=== PATIENT | male | born 1985 | race Caucasian/White ===

== ENCOUNTER 2018-11-13 06:18 | Emergency (ER) | payer OTHER ==
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
[2018-11-13] MEDS ORDERED: ACETAMINOPHEN TAB 500 MG TAB PO STA (07:10)
[2018-11-13 07:16] VITALS: TEMP 98.2
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
[2018-11-13 08:03] VITALS: BP 135/92; PULSE 100; RESP 17
== END 2018-11-13 08:03 | disposition home or self-care (01) ==
LOC: EC 06:18
DX: S16.1XXA Strain of muscle, fascia and tendon at neck level, initial encounter (principal); F17.200 Nicotine dependence, unspecified, uncomplicated; V43.52XA Car driver injured in collision with other type car in traffic accident, initial encounter; Y92.410 Unspecified street and highway as the place of occurrence of the external cause
CPT/HCPCS: 70450; 72125; 99284

== ENCOUNTER → 2020-08-04 | Outpatient (CLI) | payer BC ==
--- NOTE | 2020-08-04 15:03 | CT ---
EXAMINATION TYPE: CT abdomen pelvis wo con DATE OF EXAM: 08/04/2020 COMPARISON: HISTORY: right sided abdominal pain CT DLP: 1005 mGycm Automated exposure control for dose reduction was used. TECHNIQUE: Helical acquisition of images was performed from the lung bases through the pelvis. FINDINGS: LUNG BASES: No significant abnormality is appreciated. LIVER/GB: No significant abnormality is appreciated. PANCREAS: No significant abnormality is seen. SPLEEN: No significant abnormality is seen. ADRENALS: No significant abnormality is seen. KIDNEYS: No significant abnormality is seen. ADENOPATHY: None visualized. OSSEOUS STRUCTURES: No significant abnormality is seen. BOWEL: Diverticulosis of the colon. Area of narrowing of the sigmoid colon may be related to perista lsis rather than a true narrowing correlate clinically and if necessary with direct visualization. Ap pendix normal. No free fluid or free air. OTHER: Small fat-containing periumbilical hernia. Aorta of normal caliber. IMPRESSION: 1. No hydronephrosis or nephrolithiasis. 2. Appendix normal. 3. Small fat-containing periumbilical hernia. Area of localized narrowing involving the sigmoid colon may be related to transient peristalsis. Correlate clinically and if necessary with direct visualiza tion as clinically warranted.
== END | disposition home or self-care (01) ==
LOC: RADCTMAIN 14:12
PROVIDERS: ATTEND Family Medicine
DX: K42.9 Umbilical hernia without obstruction or gangrene (principal)
CPT/HCPCS: 74176

== ENCOUNTER 2022-03-30 14:25 | Emergency (ER) | payer BC ==
--- NOTE | 2022-03-30 14:29 | ED ---
General Adult HPI <Vargas Wiggins - Last Filed: 03/30/22 14:28> - General Source: patient, RN notes reviewed Limitations: no limitations <Luis Alberto Archer - Last Filed: 03/30/22 17:26> - General Stated complaint: abd pain Time Seen by Provider: 03/30/22 14:28 - History of Present Illness Initial comments: Dictation was produced using [employer] dictation software. please excuse any grammatical, word or spelling errors. Medical screening exam: 36-year-old male presents emergency department for right upper quadrant pain. He's been having intermittent episodes. Patient's history of right upper quadrant abdominal pain evaluation in the past. Denies any history of cholecystectomy. No fevers. No nausea vomiting. At the bedside patient's well-appearing acute distress. Palpation to the right upper quadrant is unremarkable. (Vargas Wiggins) Patient is a pleasant 36-year-old male presenting to the emergency department with concerns for abdominal discomfort. Symptoms have been present for the past year and a half. Symptoms are somewhat worse the past couple of days. Symptoms do wax and wane. Symptoms are not dietary. Discomfort is somewhat worse on the right upper than left upper. Patient has had previous workup including ultrasound, HIDA scan, and computed tomography scan however that has been 10 or 11 months ago. No nausea or vomiting. No constipation or diarrhea. (Luis Alberto Archer) - Related Data Previous Rx's Medication Instructions Recorded Dicyclomine [Bentyl] 20 mg PO QID PRN #15 tablet 03/30/22 Pantoprazole [Protonix] 40 mg PO DAILY #30 tab 03/30/22 Allergies Allergy/AdvReac Type Severity Reaction Status Date / Time No Known Allergies Allergy Verified 03/30/22 14:34 Review of Systems ROS Other: All systems not noted in ROS Statement are negative. <Vargas Wiggins - Last Filed: 03/30/22 14:28> ROS Other: All systems not noted in ROS Statement are negative. Constitutional: Denies: fever Respiratory: Denies: dyspnea Cardiovascular: Denies: chest pain Gastrointestinal: Reports: as per HPI, abdominal pain Musculoskeletal: Denies: back pain <Luis Alberto Archer - Last Filed: 03/30/22 17:26> ROS Statement: Those systems with pertinent positive or pertinent negative responses have been documented in the HPI. Past Medical History Past Medical History: No Reported History History of Any Multi-Drug Resistant Organisms: None Reported Past Surgical History: No Surgical Hx Reported Past Psychological History: No Psychological Hx Reported Past Alcohol Use History: None Reported Past Drug Use History: None Reported <RosalieVargas D - Last Filed: 03/30/22 14:28> General Exam Limitations: no limitations General appearance: alert, in no apparent distress Head exam: Present: normocephalic Eye exam: Present: normal appearance Neck exam: Present: normal inspection Respiratory exam: Present: normal lung sounds bilaterally Cardiovascular Exam: Present: regular rate, normal rhythm Expanded Peripheral pulses: 2+: Posterior Tibialis (R), Posterior Tibialis (L) GI/Abdominal exam: Present: soft, tenderness (Mild tenderness right upper). Absent: distended Extremities exam: Present: normal inspection. Absent: pedal edema, calf tenderness Neurological exam: Present: alert Psychiatric exam: Present: normal affect, normal mood Skin exam: Present: normal color <Luis Alberto Archer - Last Filed: 03/30/22 17:26> Course Vital Signs 03/30/22 14:30 Temperature 97.7 F Pulse Rate 93 Respiratory 18 Rate Blood Pressure 126/85 O2 Sat by Pulse 97 Oximetry EKG Findings - EKG Results: EKG: interpreted by ERMNuzhat, sinus rhythm, normal axis, normal QRS, normal ST/T <Luis Alberto Archer - Last Filed: 03/30/22 17:26> Medical Decision Making - Lab Data Result diagrams: 03/30/22 14:29 03/30/22 14:29 - Radiology Data Radiology results: report reviewed (Computed tomography scan of the abdomen pelvis reveals no acute process.) <Luis Alberto Archer - Last Filed: 03/30/22 17:26> - Medical Decision Making Patient reevaluated and updated. Was pt. sent in by a medical professional or institution? @ -n Did you speak to anyone other than the patient for history? @ -n Did you review nursing and triage notes? @ -y and I agree Were old charts reviewed? @ -n Differential Diagnosis? @ -Differential Abdominal Pain Women: Appendicitis, Cholecystitis, diverticulosis, ischemic bowel, pancreatitis, hepatitis, UTI, gastroenteritis, AAA, incarcerated hernia, bowel obstruction, constipation, inflammatory bowel, hepatitis, peptic ulcer disease, splenic infarction, perforated viscus, vulvitis, ovarian torsion, PID, kidney stone, placenta abruption, this is not meant to be an all-inclusive list EKG interpreted by me (3pts min.)? @ -y X-rays interpreted by me (1pt min.)? @ -n CT interpreted by me (1pt min.)? @ -n U/S interpreted by me (1pt. min.)? @ -n What testing was considered but not performed? (CT, X-rays, U/S, labs)? Why? @ Ultrasound considered however computed tomography scan was ordered What meds were considered but not given? Why? @ -Additional Abdominal medications were considered however not given secondary to patient appearing well at this time. Did you discuss the management of the patient with other professionals? @ -n Did you reconcile home meds? @ -n Was smoking cessation discussed for >3mins.? @ -n Was critical care preformed (if so, how long)? @ -n Were there social determinants of health that impacted care today? How? (Homelessness, low income, unemployed, alcoholism, drug addiction, transportation, low edu. Level, literacy, decrease access to med. care, nursing home, rehab)? @ -n Was there de-escalation of care discussed even if they declined? (Discuss DNR or withdrawal of care, Hospice)? @ -n What co-morbidities impacted this encounter? (DM, HTN, Smoking, COPD, CAD, Cancer, CVA, Hep., AIDS, mental health diagnosis, sleep apnea, morbid obesity)? @ - Was patient admitted / discharged? @ -Discharged Undiagnosed new problem with uncertain prognosis? @ -Undiagnosed new problem, nonspecific abdominal pain with uncertain prognosis Drug Therapy requiring intensive monitoring for toxicity (Heparin, Nitro, Insulin, Cardizem)? @ -n Were any procedures done? @ -n Diagnosis/symptom? @ -Abdominal pain, acute Acute, or Chronic, or Acute on Chronic? @ -Acute on chronic Uncomplicated (without systemic symptoms) or Complicated (systemic symptoms)? @ -Uncomplicated Side effects of treatment? @ -n Exacerbation, Progression, or Severe Exacerbation] @ -n Poses a threat to life or bodily function? @ -n (Luis Alberto Archer) - Lab Data Lab Results 03/30/22 03/30/22 03/30/22 Range/Units 14:29 14:29 14:29 WBC 10.1 (3.8-10.6) k/uL RBC 5.24 (4.30-5.90) m/uL Hgb 15.9 (13.0-17.5) gm/dL Hct 43.8 (39.0-53.0) % MCV 83.6 (80.0-100.0) fL MCH 30.3 (25.0-35.0) pg MCHC 36.3 (31.0-37.0) g/dL RDW 12.5 (11.5-15.5) % Plt Count 293 (150-450) k/uL MPV 6.9 Neutrophils % 62 % Lymphocytes % 29 % Monocytes % 5 % Eosinophils % 2 % Basophils % 1 % Neutrophils # 6.3 (1.3-7.7) k/uL Lymphocytes # 3.0 (1.0-4.8) k/uL Monocytes # 0.5 (0-1.0) k/uL Eosinophils # 0.2 (0-0.7) k/uL Basophils # 0.1 (0-0.2) k/uL Sodium 140 (137-145) mmol/L Potassium 4.0 (3.5-5.1) mmol/L Chloride 103 (98-107) mmol/L Carbon Dioxide 27 (22-30) mmol/L Anion Gap 10 mmol/L BUN 10 (9-20) mg/dL Creatinine 0.90 (0.66-1.25) mg/dL Est GFR (CKD-EPI)AfAm >90 (>60 ml/min/1.73 sqM) Est GFR (CKD-EPI)NonAf >90 (>60 ml/min/1.73 sqM) Glucose 87 (74-99) mg/dL Calcium 9.8 (8.4-10.2) mg/dL Total Bilirubin 0.9 (0.2-1.3) mg/dL AST 28 (17-59) U/L ALT 47 (4-49) U/L Alkaline Phosphatase 78 (38-126) U/L Total Protein 8.0 (6.3-8.2) g/dL Albumin 5.0 (3.5-5.0) g/dL Lipase 74 (23-300) U/L Urine Color Colorless Urine Appearance Clear (Clear) Urine pH 6.5 (5.0-8.0) Ur Specific S[place]heimer 1.006 (1.001-1.035) Urine Protein Negative (Negative) Urine Glucose (UA) Negative (Negative) Urine Ketones Negative (Negative) Urine Blood Negative (Negative) Urine Nitrite Negative (Negative) Urine Bilirubin Negative (Negative) Urine Urobilinogen <2.0 (<2.0) mg/dL Ur Leukocyte Esterase Negative (Negative) Disposition <Vargas Wiggins - Last Filed: 03/30/22 14:28> Is patient prescribed a controlled substance at d/c from ED?: No Time of Disposition: 17:25 <Luis Alberto Archer - Last Filed: 03/30/22 17:26> Clinical Impression: Abdominal pain Disposition: HOME SELF-CARE Condition: Stable Instructions (If sedation given, give patient instructions): Abdominal Pain (ED) Additional Instructions: Please do follow-up with primary care physician in the next couple days for recheck. Please consider evaluation with gastroenterology or surgery. Return for increased pain, fever, vomiting, worsening or change in symptoms or other concerns. Prescriptions have been sent to pharmacy. Prescriptions: Dicyclomine [Bentyl] 20 mg PO QID PRN #15 tablet PRN Reason: Pain Pantoprazole [Protonix] 40 mg PO DAILY #30 tab Referrals: Pearl Kohler MD [STAFF PHYSICIAN] - 1-2 days Harry Aleman MD [Medical Doctor] - 1-2 days Yousif Banks MD [STAFF PHYSICIAN] - 1-2 days
[2022-03-30 14:34] VITALS: BP 126/85; PULSE 93; RESP 18; TEMP 97.7
[2022-03-30 14:58] LABS: Appearance,Urine Clear (Clear); Basophils # (A) 0.1 k/uL (0-0.2); Basophils % (A) 1 %; Bilirubin,Urine Negative (Negative); Blood,Urine Negative (Negative); Color,Urine Colorless; Eosinophils # (A) 0.2 k/uL (0-0.7); Eosinophils % (A) 2 %; Glucose,Urine (UA) Negative (Negative); HCT 43.8 % (39.0-53.0); HGB 15.9 gm/dL (13.0-17.5); Ketones,Urine Negative (Negative); Leukocyte Esterase,Urine Negative (Negative); Lymphocytes % (A) 29 %; MCH 30.3 pg (25.0-35.0); MCHC 36.3 g/dL (31.0-37.0); MCV 83.6 fL (80.0-100.0); Mean Platelet Volume 6.9; Monocytes # (A) 0.5 k/uL (0-1.0); Monocytes % (A) 5 %; Neutrophils # (A) 6.3 k/uL (1.3-7.7); Neutrophils % (A) 62 %; Nitrite,Urine Negative (Negative); PH, Urine 6.5 (5.0-8.0); Platelet Count 293 k/uL (150-450); Protein,Urine Negative (Negative); RBC 5.24 m/uL (4.30-5.90); RDW 12.5 % (11.5-15.5); Specific Gravity,Urine 1.006 (1.001-1.035); Urobilinogen,Urine <2.0 mg/dL (<2.0); WBC 10.1 k/uL (3.8-10.6)
[2022-03-30 15:07] LABS: ALT 47 U/L (4-49); AST 28 U/L (17-59); African American GFR (CKD) >90 (>60 ml/min/1.73 sqM); Alkaline Phosphatase 78 U/L (38-126); Anion Gap 10 mmol/L; Blood Urea Nitrogen 10 mg/dL (9-20); Calcium 9.8 mg/dL (8.4-10.2); Carbon Dioxide 27 mmol/L (22-30); Chloride 103 mmol/L (98-107); Glucose 87 mg/dL (74-99); Lipase 74 U/L (23-300); Non-African American GFR(CKD) >90 (>60 ml/min/1.73 sqM); Sodium 140 mmol/L (137-145); Total Bilirubin 0.9 mg/dL (0.2-1.3)
[2022-03-30] MEDS ORDERED: DICYCLOMINE 10 MG/ML 2 ML AMP IM STA (15:45)
--- NOTE | 2022-03-30 16:56 | CT ---
EXAMINATION TYPE: CT abdomen pelvis wo con DATE OF EXAM: 03/30/2022 COMPARISON: 08/04/2020 HISTORY: right flank pain CT DLP: 991.9 mGycm Automated exposure control for dose reduction was used. Images obtained from the diaphragm to the floor the pelvis with no contrast. Lung bases are clear. No pleural effusion. Heart size is normal. No pericardial effusion. Liver spleen and stomach pancreas gallbladder appear intact. The bile ducts are not dilated. There is no adrenal mass. Kidneys show normal size and contour. No hydronephrosis. Ureters are not di lated. Bladder distends smoothly. No inguinal hernia. No free fluid in the pelvis. Appendix is domestic cleaner ior and appears normal. There is no inguinal hernia. No evidence of pelvic mass. There is no mesenter ic edema. No ascites or free air. No sign of a bowel obstruction. The lumbar vertebra appear intact. No compression fracture. Posterior elements are intact. No signifi cant disc space narrowing. Bony pelvis is intact. The hip joints are intact. IMPRESSION: Negative CT scan abdomen and pelvis. Normal appendix. No adverse change compared to old exam.
== END 2022-03-30 17:45 | disposition home or self-care (01) ==
LOC: EC 14:25
DX: R10.11 Right upper quadrant pain (principal)
CPT/HCPCS: 36415; 93005; 80053; 83690; 85025; 81003; 74176; 99284; 96372; J0500

== ENCOUNTER 2022-08-13 11:08 | Day surgery (SDC) | payer BC ==
[2022-08-13 13:59] VITALS: TEMP 97
[2022-08-13] MEDS ORDERED: LACTATED RINGERS 1,000 ML IV ONE (14:07)
[2022-08-13] MEDS ORDERED: PROPOFOL 10 MG/ML 20 ML VIAL IV ONE (16:00)
[2022-08-13] MEDS ORDERED: LIDOCAINE 2% INJ 20 MG/ML (2 ML VIAL) ONE (16:00)
--- NOTE | 2022-08-13 16:11 | P.PCN ---
Date of Procedure: 08/13/22 Procedure(s) Performed: BRIEF HISTORY: Patient is a 37-year-old, pleasant, white male male scheduled for an upper endoscopy as a part of evaluation of epigastric and right upper quadrant abdominal pain for the last 2 years duration.. He does complain of occasional heartburn. He denies any nausea vomiting. PROCEDURE PERFORMED: Esophagogastroduodenoscopy with biopsy. PREOPERATIVE DIAGNOSIS: Chronic right upper quadrant abdominal pain and occasional heartburn. IV sedation per anesthesia. PROCEDURE: After informed consent was obtained, the patient was brought into the endoscopy unit. IV sedation was administered by Anesthesia under continuous monitoring. Initially the Olympus GIF-140 video endoscope was inserted into the mouth. Esophagus intubated without any difficulty. It was gradually advanced into the stomach and duodenum and carefully examined. The bulb and the second part of the duodenum appeared normal. The scope at this time was withdrawn to the stomach, adequately insufflated with air, and upon careful examination, mucosa of the antrum, and mild gastritis and biopsies were done from this area. Mucosa of the body, cardia and the fundus appeared normal. The scope was then withdrawn into the esophagus. small hiatal hernia noted. The GE junction was located at 41 cm from the incisors. linear erosions in the distal esophagus consistent with LA grade B reflux esophagitis. Rest of esophagus appeared normal and the patient tolerated the procedure well. IMPRESSION: 1. Linear erosions in the distal esophagus consistent with LA grade B reflux esophagitis. 2. Small hiatal hernia 3. Mild antral gastritis. RECOMMENDATIONS: The findings of this examination were discussed with the patient as well as a family. He was advised to follow with the biopsy results. In the meantime I suggested that he try Prilosec 20 mg daily half hour before breakfast and follow antireflux measures for 6 weeks. Follow up in office in 6 weeks
[2022-08-13] MEDS ORDERED: LACTATED RINGERS 1,000 ML IV SCH (16:16)
[2022-08-13 16:33] VITALS: BP 136/76; PULSE 90; RESP 16
== END 2022-08-13 16:50 | disposition home or self-care (01) ==
LOC: ORWHC2ENDO 11:08
PROVIDERS: ATTEND Internal Medicine Gastroenterology
DX: K29.50 Unspecified chronic gastritis without bleeding (principal); K44.9 Diaphragmatic hernia without obstruction or gangrene; G89.29 Other chronic pain; K21.9 Gastro-esophageal reflux disease without esophagitis; F17.290 Nicotine dependence, other tobacco product, uncomplicated; Z79.899 Other long term (current) drug therapy
CPT/HCPCS: 43239; J2704; J2001; 88305

== ENCOUNTER → 2024-07-11 | Outpatient (CLI) | payer BC ==
[2024-07-11 15:26] VITALS: BP 127/75; PULSE 97; RESP 16; TEMP 98.1
--- NOTE | 2024-07-11 15:56 | P.SLEEP ---
History of Present Illness DATE: 07/11/2024 CONSULTATION/NEW PATIENT EVALUATION HISTORY OF PRESENT ILLNESS/SLEEP-WAKE EVALUATION: 39-year-old gentleman had b een evaluated in the sleep center for possible obstructive sleep apnea hypopnea syndrome. SLEEP SCHEDULE: Usually sleep schedule from 9 PM to 4 AM on weekdays and from 10 PM to 7 AM on weekend. FALLING ASLEEP: Noticed with falling asleep, has TV set in bedroom. DURING SLEEP: Patient usually sleeps on the side position with loud snoring and witnessed episodes of stop breathing during sleep by his . If history of possible night terrors. Positive history of sleep talking, sweating, restless leg symptoms, heartburn, dry mouth. Patient wakes up from sleep 3 times with nocturia no history of hypnogogical hallucinations, sleep paralysis, or cataplexy. DURING THE DAY/WAKE STATE: In the morning patient wake up tired, has difficulties to pay attention, has problems with memory, concentration, irritability, anxiety.. Taylor sleepiness scale is significantly increased to 13. Patient may take nap on weekends around noon time. PAST MEDICAL HISTORY: Sinus problems, allergy to dust. PAST SURGICAL HISTORY: None. MEDICATIONS: None. SOCIAL HISTORY: Please see below. FAMILY HISTORY: See below. REVIEW OF SYSTEMS: Loud snoring, multiple awakenings from sleep, sleepiness during the day. No fevers. No double vision. No recent chest pain. No shortness of breath. No abdominal pain. No bleeding episodes. No blood in urine. No seizure episodes. PHYSICAL EXAMINATION: GENERAL: A pleasant patient without any distress. VITAL SIGNS: Please see below, weight 251.4 pounds, BMI 35.0. HEENT: PERRLA, EOMI. Evaluation of oropharynx showed tongue protrudes midline, low position of soft palate Mallampati 34. NECK: Supple. No JVD. Thyroid is not palpable. 18-1/4 inches in circumference. LUNGS: Clear to percussion and to auscultation. Good air exchange. No wheezing or rhonchi. HEART: S1, S2 regular. No murmurs, gallops or rubs. ABDOMEN: Soft and nontender. Bowel sounds are present. No organomegaly appreciated. EXTREMITIES: No clubbing or cyanosis. STITCHDOWN THREAD LASTER: Awake, alert, and oriented x3. Cranial nerves 2 to 7 intact. There is no fasciculation or atrophy noted. No focal deficits observed. ASSESSMENT: 1. Loud snoring, witnessed episodes of stop breathing during the sleep, extremely low position of soft palate Mallampati 34, wide neck 18-1/4 inches in circumference, sleepiness with Taylor Sleepiness Scale increased to 13. Obstructive sleep apnea hypopnea syndrome. 2. Obesity, BMI 35.0. 3. Sinus problems. 4. Allergy to dust. 5 history of possible night terrors. PLAN: 1. Home sleep apnea test for evaluation of patient's breathing during sleep. 2. Following plan after reading sleep study. 3. Preferable position during sleep on the side. 4. No driving if patient feels any sleepiness. Patient is aware of civil and criminal liability for unsafe driving. 5. Sleep hygiene with regular sleep time for at least 7.5-8 hours. 6. Watching during weight. Thank you very much for referring this patient for consultation. Sincerely, Ricardo Dwyer MD, PhD, FAASM. Diplomat of [place] [employer], Sleep Medicine Board by [place] [employer] [employer] Exploration Manager of [facility] [place] cc: Ricardo Castañeda DO Past Medical History Past Medical History: GERD/Reflux Additional Past Medical History / Comment(s): ATHLETIC ASTHMA History of Any Multi-Drug Resistant Organisms: None Reported Past Surgical History: No Surgical Hx Reported Additional Past Surgical History / Comment(s): UPPER ENDOSCOPY Past Psychological History: ADD/ADHD, Anxiety Smoking Status: Current some day smoker, Vaper Past Alcohol Use History: Occasional Past Drug Use History: None Reported - Past Family History Mother Family Medical History: Dialysis Additional Family Medical History / Comment(s): SINUS HEADACHES, CATARACTS OR ASTIGMATISM - NOT SURE WHICH EYE Father Family Medical History: Asthma, Myocardial Infarction ([place]) Additional Family Medical History / Comment(s): SINUS ISSUES, FROM [place] AT AGE 61. EITHER HTN OR HYPERLIPIDEMIA - UNSURE WHICH. Medications and Allergies Allergies Allergy/AdvReac Type Severity Reaction Status Date / Time No Known Allergies Allergy Verified 03/30/22 14:34 Physical Exam Vitals: Vital Signs Temp Pulse Resp BP Pulse Ox 07/11/24 15:23 98.1 F 97 16 127/75 95 Intake and Output 07/11/24 07/11/24 07/11/24 06:59 14:59 22:59 Other: Weight 113.965 kg Sleep Note - Sleep Data ESS Total: 13 - Sleep Note Sleep Note: Temperature: 98.1 F Pulse Rate: 97 Respiratory Rate: 16 Blood Pressure: 127/75 SpO2: 95 Height: 5 ft 11 in Weight: 113.965 kg BMI: Neck Circumference: 18.2
== END ==
LOC: 3 N SLEEP 14:55
PROVIDERS: ATTEND Internal Medicine
DX: G47.33 Obstructive sleep apnea (adult) (pediatric) (principal); E66.9 Obesity, unspecified; J30.89 Other allergic rhinitis; J32.9 Chronic sinusitis, unspecified; F17.200 Nicotine dependence, unspecified, uncomplicated; Z68.35 Body mass index [BMI] 35.0-35.9, adult
CPT/HCPCS: 99211

== ENCOUNTER 2024-09-08 19:32 | Outpatient (CLI) | payer BC ==
--- NOTE | 2024-09-12 10:57 | P.PCN ---
Description of Procedure: CLINICAL: Titration with positive air pressure has been done for correction of respiratory abnormalities during sleep. DESCRIPTION OF PROCEDURE: The standard montage for clinical polysomnography included the electroencephalogram, the electrocardiogram, the mentalis surface electromyography and Lead II cardiography. The respiratory battery consisted of measurements of nasal /buccal air flow, pressure transducer measurements from the nose, thoracic and /or abdominal effort and intercostal surface electromyography. Video monitoring has been done to check for any parasomnia events. Nocturnal oxyhemoglobin saturations were obtained by finger oximetry. Step-mendoza titration with positive airway pressure was utilized to control respiratory events. Raw data of sleep recording has been reviewed and is adequate. RESULTS: Sleep efficiency was borderline normal 88.9%. Latency to sleep onset was normal 15.5]. Sleep architecture showed stage N1 slightly short 4.7%, Delta sleep prostate 0.9%, REM sleep lung to 31.8%. Heart rate was minimum 66 BPM, maximum 75 BPM, average 70 BPM. EMG showed 41.4 periodic limb movements per hour with 0.3 micriarousals per hour. PAP titration have been done with CPAP up to the pressure 10 cm H2O. The best results were at the pressure 6 cm H2O. Apnea hypopnea index reduced to 4.2.that pressure patient was only in no REM sleep. When she was in the REM sleep apnea-hypopnea index significantly increased and did not normalized with the highest pressure of 10 cm of water. IMPRESSION: 1. severeObstructive sleep apnea hypopnea syndrome improved with PAP treatment. 2. Significant periodic limb movements have been documented. Please see other impressions from consultation. PLAN: 1. The patient will have treatment with positive air pressure equipment with the level of pressure AutoPAP 5-15 cm H2O and should use it every night for the whole night. 2. Watching weight. 3. Sleep hygiene with regular time in bed for at least 8 hours. 4. No driving if feeling any sleepiness. 5. I will see the patient for follow up visit to explain the results of the test, recommendations, check compliance with treatment and make any necessary adjustment related to mask fitting, pressure and humidification. 6. Please check iron profile including ferritin level. Low level of iron may increase risk for periodic limb movements Thank you very much for allowing me to participate in the management of your patient. Sincerely, Ricardo Dwyer MD, PhD, FAASM Diplomat of [place] [employer] Sleep Medicine Board of [place] [employer] Repairer of [facility] [place] cc: Ricardo Perez DO
== END 2024-09-09 05:05 | disposition home or self-care (01) ==
LOC: 3 N SLEEP 19:32
PROVIDERS: ATTEND Internal Medicine
DX: G47.33 Obstructive sleep apnea (adult) (pediatric) (principal); G47.61 Periodic limb movement disorder; F17.200 Nicotine dependence, unspecified, uncomplicated; Z99.89 Dependence on other enabling machines and devices
CPT/HCPCS: 95811